=== PATIENT | female | born 1950 | race Hispanic/Latino ===

== ENCOUNTER 2025-05-10 03:31 | Emergency (ER) | payer OTHER ==
[2025-05-10 06:26] LABS: Glucose, Urine (Dipstick) 100 mg/dL (Negative); Leukocyte Negative (Negative); Protein, Urine (Dipstick) Trace mg/dL (Neg-Trace); Specific Gravity, Urine 1.010 (1.005-1.030)
[2025-05-10 06:27] LABS: Bacteria/HPF None Seen HPF (None Seen); CAUTI Indications for Culture Dysuria,urgency,freq; RBC/HPF 0-3 HPF (0-3); WBC/HPF 0-3 HPF (0-3)
[2025-05-10 06:29] LABS: Urine Culture Reflex No No
== END 2025-05-10 09:09 | disposition home or self-care (01) ==
LOC: ERS 03:31
DX: M17.12 Unilateral primary osteoarthritis, left knee (principal); I10 Essential (primary) hypertension; E11.9 Type 2 diabetes mellitus without complications
CPT/HCPCS: 51701; 71045; 81001; 87428; 93005